=== PATIENT | female | born 1955 | race Caucasian/White ===

== ENCOUNTER → 2023-07-08 07:52 | Outpatient (REF) | payer MEDICARE, SELFPAY ==
[2023-07-08 09:14] LABS: % Basophils 0.6 % (0-2); % Eosinophils 2.9 % (0-6); % Immature Granulocytes 0.1 % (0-0.5); % Lymphocytes 29.7 % (20.5-51.1); % Monocytes 8.3 % (1.7-9.3); % Neutrophils 58.4 % (42.2-75.2); Absolute Eosinophils 0.2 10^3/uL (0-0.7); Absolute Lymphocytes 2.1 10^3/uL (1.2-3.4); Absolute Monocytes 0.6 10^3/uL (0.1-0.6); Absolute Neutrophils 4.1 10^3/uL (1.4-6.5); Hematocrit 39.1 % (37.0-47.0); Mean Corp Hgb Conc. 33.2 g/dL (33.0-37.0); Mean Corpuscular Hgb 28.2 pg (27.0-31.0); Mean Corpuscular Volume 84.8 fL (81.0-99.0); Nucleated Red Blood Cells % 0 %; Platelet Count 331 10^3/uL (130-400); Red Blood Cell Count 4.61 10^6/uL (4.20-5.40); Red Cell Dist. Width 14.2 % (11.5-14.5)
[2023-07-08 09:21] LABS: Blood Urea Nitrogen 27 mg/dl (7-17); Calcium 9.8 mg/dl (8.4-10.2); Carbon Dioxide 24 mmol/L (22-30); Chloride 108 mmol/L (98-107); Glucose 90 mg/dl (70-99); Potassium 4.4 mmol/L (3.5-5.1); Sodium 140 mmol/L (135-145); eGFR > 60.00
== END ==
LOC: RCS 07:52
PROVIDERS: ATTENDING PHYSICIAN Specialist
DX: Z01.818 Encounter for other preprocedural examination (principal)
CPT/HCPCS: 36415; 80048; 85025; 93005

== ENCOUNTER 2023-08-11 14:16 | Emergency (ER) | payer MEDICARE, SELFPAY ==
[2023-08-11 14:38] VITALS: BP 97/79
--- NOTE | 2023-08-11 14:41 | ED.PDOC.TR ---
ED Provider Triage
-
Patient seen by provider in Triage?: Seen in Triage
Pt was assessed in triage as a rapid assessment to expedite ongoing care with expectation of further assessment.
68-year-old female presenting to the emergency department today with concerns of significant shortness of breath and syncopal episode just prior to arrival. Recently had hip surgery yesterday for arthritic hip issues. Has had some right leg
swelling. Normal heart lung examination symptoms now resolved other than ongoing shortness of breath no specific chest pain. Concern potential PE considering patient's recent surgery and description of symptoms. Plan for CT scan as well as labs
and EKG.
--- NOTE | 2023-08-11 15:37 | ED.GENMED ---
History of Present Illness
General
Chief Complaint: Fainting/Passed Out
Time Seen by Provider: 08/11/23 15:28
Travel History
Have you had any contact with someone who has COVID-19?: No
Do you have any symptoms of coronavirus? Fever > 100 degrees, chills, cough, shortness of breath, sore throat, loss of taste or smell, muscle aches, or headache?: No
History of Present Illness
History of Present Illness:
68-year-old female presents to the emergency department for evaluation of a syncopal event that occurred earlier today while performing physical therapy. She is 1 day status post right total hip arthroplasty performed by Dr. Pyle. States that
her pain has been well-controlled. States during this bout of PT she felt extremely short of breath leading to the witnessed syncopal event. Currently she feels lightheaded but denies any chest pain or shortness of breath. Denies any calf pain or
leg swelling. Currently on full dose aspirin but no anticoagulants. No history of DVT or PE. Denies any recent vomiting or diarrhea.
Past History
Past History
ED Past Medical History: None
ED Past Surgical History: Gynecological and Urological
Social History
Tobacco: Non-smoker
Personal:
Living: with family
Review of Systems
Review of Systems
Allergies reviewed?: Yes
All Other Systems: ROS reviewed and negative except as documented in HPI and ROS
Phy Exam
Physical Exam
Physical Exam:
GEN: Well appearing, NAD, WDWN
HEENT: Oral mucosa moist, no scleral icterus
Cardiac: Regular rate and rhythm, no murmur
Lung: No respiratory distress, no tachypnea, lungs clear to auscultation bilaterally
MSK: No gross deformity or injuries, no lower extremity edema
Skin: Good color, no pallor or jaundice, no rashes
Neuro: AO x3, moves all extremities freely
Psych: Calm, cooperative
Course
Orders/Labs/Results
Orders:
Orders
08/11/23 14:41
Electrocardiogram (*1) Stat
Reason for Study: Other
Other Reason for Exam: chest pain
CT Chest Pe Study Urgent
Comment:
Reason For Exam: sob, syncope, surgery recent, high risk PE
EKG- Treatment ONCE
08/11/23 15:35
Complete Blood Count/With Diff Urgent
Comprehensive Metabolic Panel Urgent
Magnesium Urgent
NT-proBNP Urgent
Troponin I Urgent
08/11/23 15:36
0.9% Sodium Chloride 1000 ml [Nss] 1,000 ml IV BOLUS
Abnormal Lab Results
08/11/23
15:35
WBC 17.1 H 10^3/uL
(4.8-10.8)
RBC 3.38 L 10^6/uL
(4.20-5.40)
Hgb 9.9 L g/dL
(12.0-16.0)
Hct 29.6 L %
(37.0-47.0)
Abs Immat Gran (auto) 0.1 H 10^3/uL
(0-0.05)
Absolute Neuts (auto) 15.0 H 10^3/uL
(1.4-6.5)
Absolute Lymphs (auto) 1.0 L 10^3/uL
(1.2-3.4)
Absolute Monos (auto) 1.1 H 10^3/uL
(0.1-0.6)
Neutrophils % 87.6 H %
(42.2-75.2)
Lymphocytes % 5.6 L %
(20.5-51.1)
Carbon Dioxide 21 L mmol/L
(22-30)
BUN 24 H mg/dl
(7-17)
Glucose 148 H mg/dl
(70-99)
AST 59 H U/L
(14-36)
ALT 50 H U/L
(0-35)
08/11/23 15:35
08/11/23 15:35
Vital Signs
Initial and Last Documented VS:
Initial Vital Signs
Temp Pulse Resp BP Pulse Ox
98.1 F 75 18 97/79 99
08/11/23 14:38 08/11/23 14:38 08/11/23 14:38 08/11/23 14:38 08/11/23 14:38
Last Documented Vital Signs
Temp Pulse Resp BP Pulse Ox
97.8 F 86 16 137/84 99
08/11/23 19:58 08/11/23 19:58 08/11/23 19:58 08/11/23 19:58 08/11/23 19:58
MDM/Problems Addressed
MDM/Problems Addressed:
No evidence for PE on imaging,, patient given IV fluids due to low normal blood pressure in the emergency department, able to ambulate without difficulty. This is likely a vasovagal event triggered by pain and physical deconditioning postsurgically.
Comment
Comment:
EKG independently interpreted by me shows a sinus bradycardia at a rate of [address] changes concerning for ischemia
*Critical Care Note
Total Time (30-74mins, 75-104mins- exclusive of procedures): Not Applicable
ED Attending Note
-
Portions of this chart may have been created with voice recognition software.� Occasional wrong word or��sound alike� substitutions may have occurred due to the inherent limitations of voice recognition software.
Discharge Plan
Departure
Patient Disposition: Home (Routine Discharge)
Date of Disposition: 08/11/23
Time of Disposition: 19:47
Patient with high blood pressure during this ER visit?: No
Discharge Problem:
Syncope, vasovagal
Instructions: Syncope (Fainting) (DC)
Prescriptions:
No Action
sumatriptan succinate [Imitrex] 50 MG tablet
50 mg PO PRN PRN (Reason: migraine)
oxybutynin chloride 5 MG tablet
5 mg PO DAILY
Preservision Areds 2 Softgel
2 cap PO DAILY
atorvastatin 20 mg Tablet
20 mg PO DAILY
Hold Instructions: Resume on 01/18/23.
spironolactone 25 mg Tablet
12.5 mg PO DAILY
omeprazole 20 mg Capsule,Delayed Release(Dr/Ec)
20 mg PO DAILY
acetaminophen 325 mg Tablet
650 mg PO Q4HPRN PRN (Reason: Mild Pain / Temp > 101) Qty: 50 0RF
Referrals:
Ludwig Valdez MD [Family Provider] -
Interventions
Interventions:
*Risk Screen - Suicide Last Done: 08/11/23 14:38
*General Assessment Last Done: 08/11/23 20:10
*Neglect/Abuse Screening Last Done: 08/11/23 14:38
*ED COVID-19 Vaccine History Last Done: 08/11/23 14:38
*Nursing Disposition Last Done: 08/11/23 20:10
ED- Cardiac Assessment Last Done: 08/11/23 19:09
ED- Neurological Assessment Last Done: 08/11/23 19:09
Discharge Date and Time
Discharge Date/Time: 08/11/23 20:11
Print Language: SLOVAK
[2023-08-11 15:49] LABS: % Basophils 0.1 % (0-2); % Immature Granulocytes 0.4 % (0-0.5); % Lymphocytes 5.6 % (20.5-51.1); % Monocytes 6.3 % (1.7-9.3); % Neutrophils 87.6 % (42.2-75.2); Absolute Immature Granulocytes 0.1 10^3/uL (0-0.05); Absolute Monocytes 1.1 10^3/uL (0.1-0.6); Hematocrit 29.6 % (37.0-47.0); Hemoglobin 9.9 g/dL (12.0-16.0); Mean Corp Hgb Conc. 33.4 g/dL (33.0-37.0); Mean Corpuscular Hgb 29.3 pg (27.0-31.0); Mean Corpuscular Volume 87.6 fL (81.0-99.0); Mean Platelet Volume 9.4 fL (7.4-10.4); Nucleated Red Blood Cells % 0 %; Platelet Count 295 10^3/uL (130-400); Red Blood Cell Count 3.38 10^6/uL (4.20-5.40); Red Cell Dist. Width 14.3 % (11.5-14.5); White Blood Cell Count 17.1 10^3/uL (4.8-10.8)
[2023-08-11 15:59] LABS: ALT (SGPT) 50 U/L (0-35); AST (SGOT) 59 U/L (14-36); Albumin 3.7 g/dl (3.5-5.0); Alkaline Phosphatase 98 U/L (38-126); Blood Urea Nitrogen 24 mg/dl (7-17); Calcium 9.3 mg/dl (8.4-10.2); Carbon Dioxide 21 mmol/L (22-30); Chloride 107 mmol/L (98-107); Glucose 148 mg/dl (70-99); Sodium 137 mmol/L (135-145); Total Bilirubin 0.7 mg/dl (0.2-1.3); Total Protein 6.8 g/dl (6.3-8.2); eGFR > 60.00
[2023-08-11 16:10] LABS: Troponin I < 0.012 ng/ml
[2023-08-11 16:51] LABS: NT-proBNP 359 pg/ml
[2023-08-11] MEDS: NSS 1000 IV (18:35)
[2023-08-11 19:10] VITALS: BP 130/82
[2023-08-11 19:58] VITALS: BP 137/84
[2023-08-11 19:59] VITALS: BMI 28.8
== END 2023-08-11 20:11 | disposition home or self-care (01) ==
LOC: EMR 14:16
PROVIDERS: Physician Assistant; EMERGENCY PHYSICIAN Emergency Medicine; FAMILY PHYSICIAN Family Medicine
DX: R55 Syncope and collapse (principal); Z79.82 Long term (current) use of aspirin; Z96.641 Presence of right artificial hip joint
CPT/HCPCS: 99284; 96360; 71275; 80053; 83735; 83880; 84484; 85025; 93005; Q9967

== ENCOUNTER 2023-08-16 01:02 | Emergency (ER) | payer MEDICARE, SELFPAY ==
[2023-08-16 01:05] VITALS: BP 160/90
[2023-08-16 01:54] VITALS: BMI 28.7
--- NOTE | 2023-08-16 02:25 | ED.GENMED ---
History of Present Illness
<JODY Meraz - Last Filed: 08/16/23 02:37>
General
Chief Complaint: Bowel Problem
Source: patient
Time Seen by Provider: 08/16/23 02:11
Travel History
Have you had any contact with someone who has COVID-19?: No
Do you have any symptoms of coronavirus? Fever > 100 degrees, chills, cough, shortness of breath, sore throat, loss of taste or smell, muscle aches, or headache?: No
History of Present Illness
History of Present Illness:
68 year old female with hx of HTN, HLD, s/p R hip replacement 08/10/23 who presents with constipation with associated lower abdominal pain x 6 days. Pt had a R hip replacement last week. That night she took 1 dose of of oxycodone. Since that day she
has not had a BM. She tried Miralax on Wednesday and Wednesday with no relief. She then tried an enema and a suppository Wednesday evening with no relief. She developed severe sharp lower abdominal pain with associated nausea and vomiting this evening,
prompting her visit. She reports while she was here she had two BM that were runny. Denies fevers/chills, chest pain, SOB, flank pain, dysuria, hematuria, leg pain. She has a hx of IBS and has issues with constipation. However she has been having
regular BM prior to her hip surgery.
Past History
<JODY Meraz - Last Filed: 08/16/23 02:37>
Past History
ED Past Medical History: None
ED Past Surgical History: Gynecological and Urological
Social History
Tobacco: Non-smoker
Personal:
Living: with family
Review of Systems
<JODY Meraz - Last Filed: 08/16/23 02:37>
Review of Systems
Allergies reviewed?: Yes
All Other Systems: ROS reviewed and negative except as documented in HPI and ROS
Constitutional: Reports no symptoms
EENT: Reports no symptoms
Respiratory: Reports no symptoms
Cardiac: Reports no symptoms
ABD/GI: Reports abdominal pain, nausea, vomiting and constipated
: Reports no symptoms
Musculoskeletal: Reports joint pain
Skin: Reports no symptoms
Neurological: Reports no symptoms
Endocrine: Reports no symptoms
Hematologic/Lymphatic: Reports no symptoms
Psychiatric: Reports no symptoms
Phy Exam
<JODY Meraz - Last Filed: 08/16/23 02:37>
General Physical Exam
General Presentation: well appearing and no apparent distress
General age: appears stated age
General Skin: warm and dry
General Habitus: normal
General Mental: alert
General Hydration: appears well hydrated
Cardiovascular Exam
Cardiovascular Exam: regular rate/rhythm, no edema, no gallop, no murmur and normal peripheral pulses
Pulmonary Exam
Pulmonary Exam: lungs clear, no respiratory distress, no rales, no crackles, no rhonchi, no wheezing and no cough
Gastrointestinal Exam
Gastrointestinal Exam: normal bowel sounds, soft, no pulsatile mass, non distended and other (mild diffuse discomfort to palpation )
Skin Exam
Skin Exam: normal color and warm/dry
Psychiatric Exam
Psychiatric Exam: normal mood/affect
Course
<JODY Meraz - Last Filed: 08/16/23 02:37>
Vital Signs
Initial and Last Documented VS:
Initial Vital Signs
Temp Pulse Resp BP Pulse Ox
98 F 100 24 160/90 100
08/16/23 01:05 08/16/23 01:05 08/16/23 01:05 08/16/23 01:05 08/16/23 01:05
Last Documented Vital Signs
Temp Pulse Resp BP Pulse Ox
98.1 F 78 18 123/70 100
08/16/23 02:58 08/16/23 02:58 08/16/23 02:58 08/16/23 02:58 08/16/23 02:58
<Karla Fuentes DO - Last Filed: 08/16/23 03:44>
Vital Signs
Initial and Last Documented VS:
Initial Vital Signs
Temp Pulse Resp BP Pulse Ox
98 F 100 24 160/90 100
08/16/23 01:05 08/16/23 01:05 08/16/23 01:05 08/16/23 01:05 08/16/23 01:05
Last Documented Vital Signs
Temp Pulse Resp BP Pulse Ox
98.1 F 78 18 123/70 100
08/16/23 02:58 08/16/23 02:58 08/16/23 02:58 08/16/23 02:58 08/16/23 02:58
<JODY Meraz - Last Filed: 08/16/23 02:37>
MDM/Problems Addressed
Differential Diagnosis Includes:
constipation secondary to opioid use
MDM/Problems Addressed:
68 year old female who presents with 6 days of constipation with associated abdominal pain, nausea, and vomiting.
Chronic conditions affecting care: HTN
<JODY Meraz - Last Filed: 08/16/23 02:37>
*Critical Care Note
Total Time (30-74mins, 75-104mins- exclusive of procedures): Not Applicable
<Karla Fuentes DO - Last Filed: 08/16/23 03:44>
*Pulse Oximetry
Patient hypoxic: no
ED Attending Note
<JODY Meraz - Last Filed: 08/16/23 02:37>
-
Portions of this chart may have been created with voice recognition software.� Occasional wrong word or��sound alike� substitutions may have occurred due to the inherent limitations of voice recognition software.
<Karla Fuentes, DO - Last Filed: 08/16/23 03:44>
ED Attending Note
Patient seen and examined by attending physician: Yes
I performed the substantive portion of visit, reviewed & personally made and approve the management plan that is documented in note by myself or KOURTNEY.: Yes
I performed a history and physical exam of patient and discussed management with resident, I reviewed resident's note and agree with documented findings and plan of care.: Yes
ED Attending Note:
This is a 68-year-old woman who underwent right total hip replacement August [address] Pyle.
She was evaluated in this ED on postop day 1, August 10 after she suffered a syncopal episode during physical therapy. ED workup was unremarkable including CTA of the chest that was negative for PE. Syncopal event thought to be vasovagal in nature
related to pain.
Patient was prescribed oxycodone for which she took 1 dose August 10 but since then has been taking Tylenol for pain.
She complains of constipation with last bowel movement on August 10. She complains of lower abdominal discomfort, fullness, cramping and thus far has had no relief despite initiating once daily MiraLAX on Wednesday and Wednesday and tonight she tried a
suppository as well as an enema. She does admit to some crampy lower abdominal pain, nausea and 1-2 episodes of vomiting. She has not had a fever nor chills. No dysuria and urgency nor hematuria. No difficulty urinating.
She has been ambulating with walker without difficulty.
Since arrival to the ED patient has passed 2 soft to loose stools, nonbloody in nature and is feeling markedly improved with resolution of abdominal cramping and no further nausea.
Patient states she generally moves her bowels once a day.
GENERAL: 68-year-old woman appears her stated age, bright and alert, pleasant, appears in no acute distress. and daughter are accompanying.
EYE:. anicteric
NECK: Supple, nontender, no meningismus, no significant adenopathy.
ENT: oral mucosa is moist. Lips are mildly dry. No rhinorrhea.
CARDIAC: Regular rate and rhythm. no murmur.
LUNGS: Clear breath sounds bilaterally, no acute respiratory distress, no wheezes/rales/rhonchi
ABDOMEN: Soft, nondistended, without focal tenderness, no r/g, no cvat. normoactive BS. No palpable masses.
NEUROLOGICAL: Alert and oriented x3, no focal neuro deficits. Steady gait utilizing rolling walker.
SKIN: Warm and dry, normal color, skin intact. No rash.
MUSCULOSKELETAL: No C/C/E. peripheral pulses are full and equal b/l. Right lateral hip surgical dressing dry and intact. There is mild tenderness about the right hip but no soft tissue swelling, no ecchymosis.
PSYCH: Normal and appropriate interaction.
Patient presents with postoperative constipation. Initially no success with initiation of MiraLAX 2 days ago and initially no success with enema and suppository but since arrival to the ED has passed 2 stools and is feeling markedly improved.
Nausea has resolved, she is currently thirsty.
Abdomen is soft without appreciable tenderness. I do not suspect bowel obstruction nor acute colitis/gastroenteritis.
Will trial oral fluids now and if tolerated without return of nausea no return of abdominal pain will plan to discharge to home.
Recommend she continue daily MiraLAX until normal soft daily stools and then as needed.
Continue with physical therapy as scheduled for tomorrow, August 16.
Follow-up with orthopedics and PCP.
Return precautions discussed.
Discharge Plan
Departure
Patient Disposition: Home (Routine Discharge)
Date of Disposition: 08/16/23
Time of Disposition: 03:43
Patient with high blood pressure during this ER visit?: No
Condition: Good
Discharge Problem:
post-operative constipation
Instructions: Constipation, Adult (DC)
Prescriptions:
No Action
sumatriptan succinate [Imitrex] 50 MG tablet
50 mg PO PRN PRN (Reason: migraine)
oxybutynin chloride 5 MG tablet
5 mg PO DAILY
Preservision Areds 2 Softgel
2 cap PO DAILY
atorvastatin 20 mg Tablet
20 mg PO DAILY
Hold Instructions: Resume on 01/18/23.
spironolactone 25 mg Tablet
12.5 mg PO DAILY
omeprazole 20 mg Capsule,Delayed Release(Dr/Ec)
20 mg PO DAILY
acetaminophen 325 mg Tablet
650 mg PO Q4HPRN PRN (Reason: Mild Pain / Temp > 101) Qty: 50 0RF
aspirin 325 mg Tablet
325 mg PO DAILY
ondansetron HCl [Zofran] 4 mg Tablet
4 mg PO Q6H PRN (Reason: nausea)
meloxicam
Patient Comments:
dose unknown. pt takes daily at lunch
Referrals:
Ludwig Valdez MD [Family Provider] - Call in 1-3 days for appt
Interventions
Interventions:
*Risk Screen - Suicide Last Done: 08/16/23 01:05
*General Assessment Last Done: 08/16/23 01:44
*Neglect/Abuse Screening Last Done: 08/16/23 01:05
ED- Fall Risk Assessment Last Done: 08/16/23 01:44
*ED COVID-19 Vaccine History Last Done: 08/16/23 01:44
JR-Jnzalu-Oucajfkbil Assessment Last Done: 08/16/23 01:44
Discharge Date and Time
Print Language: NICARAGUAN
[2023-08-16 02:58] VITALS: BP 123/70
== END 2023-08-16 03:50 | disposition home or self-care (01) ==
LOC: EMR 01:02
PROVIDERS: EMERGENCY PHYSICIAN Emergency Medicine; FAMILY PHYSICIAN Family Medicine
DX: K59.09 Other constipation (principal); R10.30 Lower abdominal pain, unspecified; R11.2 Nausea with vomiting, unspecified; I10 Essential (primary) hypertension; E78.5 Hyperlipidemia, unspecified; K58.9 Irritable bowel syndrome, unspecified; Z96.641 Presence of right artificial hip joint; Z98.890 Other specified postprocedural states; Z79.82 Long term (current) use of aspirin; Z88.1 Allergy status to other antibiotic agents; Z88.3 Allergy status to other anti-infective agents; Z88.0 Allergy status to penicillin; Z88.2 Allergy status to sulfonamides
CPT/HCPCS: 99282

== ENCOUNTER 2025-01-02 06:28 | Day surgery (SDC) | payer MEDICARE, SELFPAY | END 2025-01-02 12:17 | disposition home or self-care (01) | LOC: GI 06:28 | PROVIDERS: ATTENDING PHYSICIAN Internal Medicine | DX: Z12.11 Encounter for screening for malignant neoplasm of colon (principal); D12.3 Benign neoplasm of transverse colon; D12.4 Benign neoplasm of descending colon; K63.5 Polyp of colon; K57.30 Diverticulosis of large intestine without perforation or abscess without bleeding; K64.9 Unspecified hemorrhoids; I97.88 Other intraoperative complications of the circulatory system, not elsewhere classified; I48.91 Unspecified atrial fibrillation; K62.89 Other specified diseases of anus and rectum; K22.70 Barrett's esophagus without dysplasia; K29.50 Unspecified chronic gastritis without bleeding; K21.9 Gastro-esophageal reflux disease without esophagitis; R13.10 Dysphagia, unspecified; K22.89 Other specified disease of esophagus; K31.7 Polyp of stomach and duodenum; Z86.0100 Personal history of colon polyps, unspecified | CPT/HCPCS: 45385; 43239; 88305; 88342; 93005 ==

== ENCOUNTER 2025-01-02 12:24 | Emergency (ER) | payer MEDICARE, SELFPAY ==
[2025-01-02] VITALS (9 sets, daily range): BP systolic 107–151; BP diastolic 78–109; BMI 28.0
[2025-01-02 12:59] LABS: Hematocrit 42.5 % (37.0-47.0); Hemoglobin 14.3 g/dL (12.0-16.0); Mean Corp Hgb Conc. 33.6 g/dL (33.0-37.0); Mean Corpuscular Volume 85.0 fL (81.0-99.0); Nucleated Red Blood Cells % 0 %; Platelet Count 312 10^3/uL (130-400); Red Cell Dist. Width 13.3 % (11.5-14.5)
[2025-01-02 13:16] LABS: ALT (SGPT) 34 U/L (0-35); AST (SGOT) 34 U/L (14-36); Albumin 5.0 g/dl (3.5-5.0); Alkaline Phosphatase 112 U/L (38-126); Blood Urea Nitrogen 15 mg/dl (7-17); Calcium 9.5 mg/dl (8.4-10.2); Carbon Dioxide 23 mmol/L (22-30); Chloride 106 mmol/L (98-107); Estimated Creatinine Clearance 56 ml/min; Glucose 96 mg/dl (70-99); Magnesium 2.2 mg/dl (1.6-2.3); Potassium 4.4 mmol/L (3.5-5.1); Sodium 139 mmol/L (135-145); Total Protein 8.1 g/dl (6.3-8.2); eGFR > 60.00
--- NOTE | 2025-01-02 13:18 | ED.GENMED ---
Addendum entered and electronically signed by Pablo Ricks MD 01/02/25 17:21:
After patient was admitted she did go into normal sinus rhythm. Repeat EKG per my interpretation normal sinus rhythm. I did discuss with cardiology who recommended discharge on metoprolol succinate 50 mg once a day as well as Eliquis if GI deems
appropriate. I did discuss with GI given that patient did have cold snares. They do state that is okay for Eliquis to start tomorrow. Will discharge patient at this time. Strict return precautions given especially with the fact the patient is on
a blood thinning medication and a heart rate lowering medication. All questions answered. Will give patient follow-up for chest pain hotline.
Original Note:
History of Present Illness
General
Chief Complaint: Heart Rate Problem
Time Seen by Provider: 01/02/25 13:01
History of Present Illness
History of Present Illness:
Patient is a 69-year-old female with history of hypertension, hyperlipidemia presenting to the emergency department with atrial fibrillation. Patient states that she had a colonoscopy today. At the end of her colonoscopy they noted that she was in
atrial fibrillation. Patient does state that a few days ago she felt tired weak short of breath. She states that she was in her usual state of health today. She states that at the end of the colonoscopy they noted that she was in A-fib so they
told her to come to the emergency department. She denies any lightheadedness dizziness palpitations chest pain shortness of breath leg swelling hemoptysis recent travel or malignancy. She does have prior history of thyroid problems so is not
currently on medications. No recent illnesses. She does drink 1 cup of coffee/tea a day. At this time patient has no complaints.
Past History
Past History
ED Past Medical History: None
ED Past Surgical History: Gynecological and Urological
Social History
Tobacco: Non-smoker
Personal:
Living: with family
Phy Exam
Physical Exam
Physical Exam:
GENERAL: in no acute distress
HEENT: normocephalic, extraocular movements intact, moist oral mucosa
NECK: normal inspection
RESPIRATORY: no respiratory distress, fine rales at right lower lobe
CARDIOVASCULAR: Irregularly irregular, tachycardic
ABDOMEN/: soft, non-distended, non-tender to palpation, no rebound or guarding
EXTREMITIES: non-tender, no edema/swelling
NEUROLOGIC: awake and alert, moves all extremities
SKIN: warm
Course
Orders/Labs/Results
Orders:
Orders
01/02/25 12:26
EKG [Electrocardiogram (*1)] Urgent
Reason for Study: Atrial Fibrillation
EKG- Treatment ONCE
01/02/25 12:46
Complete Blood Count/With Diff Urgent
Comprehensive Metabolic Panel Urgent
Magnesium Urgent
Comment: ADD ON
TSH Reflex To Free T4 Urgent
Comment: ADD ON
01/02/25 13:01
Add On- LAB Urgent
Tests Added?: magnesium, thyroid with reflex
01/02/25 13:16
CR Chest Portable - 1 View Urgent
Comment:
Reason For Exam: RLL rales
Reason Study Needs to be Portable: Unable to Transport
01/02/25 13:55
Diltiazem 125 mg/125 ml Nss [Cardizem] 125 mg in 125 ml IV NOW
Initial dose in mg/hr, then titrate:: 5
Titrate to keep:: Heart rate 80-100 bpm
Titrate by mg/hr:: 5 mg/hr
Frequency of titrations (minutes):: 15
Maximum dose in mg/hr:: 15
Diltiazem HCl [Cardizem] 10 mg IV NOW STA
Abnormal Lab Results
01/02/25
12:46
Total Bilirubin 1.4 H mg/dl
(0.2-1.3)
01/02/25 12:46
01/02/25 12:46
Vital Signs
Initial and Last Documented VS:
Initial Vital Signs
Temp Pulse Resp BP Pulse Ox
97.9 F 130 20 151/106 100
01/02/25 12:39 01/02/25 12:39 01/02/25 12:39 01/02/25 12:39 01/02/25 12:39
Last Documented Vital Signs
Temp Pulse Resp BP Pulse Ox
97.9 F 135 18 111/98 96
01/02/25 12:39 01/02/25 14:54 01/02/25 13:45 01/02/25 14:54 01/02/25 13:45
MDM/Problems Addressed
Differential Diagnosis Includes:
Patient is a 69-year-old female presenting to the emergency department with concerns of being in atrial fibrillation. On arrival patient's heart rate was in the 130s. During my evaluation she was anywhere in the 130s to 150s. Exam was otherwise
reassuring. EKG per my interpretation atrial fibrillation with RVR. I did have a long discussion with patient. It is known that she went into A-fib during the procedure. However it is not clear if she was in and out of A-fib the days leading up
to this. After shared decision making will not proceed with cardioversion. Will check basic blood work including thyroid. Will check a chest x-ray as she does have fine rales in the right lower lobe.
*Pulse Oximetry
SaO2: 93
Oxygen Mode of Delivery: Room air
Patient hypoxic: no
*Critical Care Note
Total Time (30-74mins, 75-104mins- exclusive of procedures): Not Applicable
Update Note
Update Note:
Chest x-ray per my interpretation with no obvious abnormality. Blood work otherwise reassuring. Patient is on diltiazem. Discussed with hospitalist who accepted patient pending thyroid studies.
ED Attending Note
-
Portions of this chart may have been created with voice recognition software.� Occasional wrong word or��sound alike� substitutions may have occurred due to the inherent limitations of voice recognition software.
Discharge Plan
Departure
Patient Disposition: Admit
Date of Disposition: 01/02/25
Time of Disposition: 15:19
Presentation/result/management discussed w/ accepting MD/DO: Hospitalist
Discharge Problem:
Atrial fibrillation
Prescriptions:
No Action
oxybutynin chloride 5 MG tablet
5 mg PO BID
spironolactone 25 mg Tablet
12.5 mg PO DAILY
atorvastatin [Lipitor] 20 mg Tablet
20 mg PO QPM
omeprazole 20 mg Tablet,Delayed Release (Dr/Ec)
20 mg PO DAILYPRN PRN (Reason: gerd)
PreserVision AREDS 2,148 mcg-113 mg-45 mg-17.4mg Tablet
1 tab PO BID
Referrals:
Ludwig Valdez MD [Family Provider, Family Practice]
Interventions
Interventions:
*Risk Screen - Suicide Last Done: 01/02/25 12:39
*General Assessment Last Done: 01/02/25 12:39
*Neglect/Abuse Screening Last Done: 01/02/25 12:39
*ED- Fall Risk Assessment Last Done: 01/02/25 13:20
ED- Cardiac Assessment Last Done: 01/02/25 13:18
ED- Pulmonary Assessment Last Done: 01/02/25 13:18
Discharge Date and Time
Print Language: GREENLANDIC
[2025-01-02] MEDS: CARDIZEM 10 MG IV (14:54)
[2025-01-02] MEDS: CARDIZEM 125 IV (14:55)
== END 2025-01-02 17:46 | disposition home or self-care (01) ==
LOC: EMR 12:24
PROVIDERS: Emergency Medicine; EMERGENCY PHYSICIAN Student in an Organized Health Care Education/Training Program; FAMILY PHYSICIAN Family Medicine
DX: I48.91 Unspecified atrial fibrillation (principal); I10 Essential (primary) hypertension; E78.5 Hyperlipidemia, unspecified; Z79.01 Long term (current) use of anticoagulants
CPT/HCPCS: 99284; 96374; 96376; 71045; 80053; 83735; 84443; 85025; 93005

== ENCOUNTER → 2025-01-06 07:05 | Outpatient (REF) | payer MEDICARE, SELFPAY ==
[2025-01-06 08:42] LABS: Glycohemoglobin (HgbA1c) 5.5 % (4.0-5.9)
[2025-01-06 08:58] LABS: HDL Cholesterol 48 mg/dl; LDL Cholesterol, Calculated 39 mg/dl; Very Low Density Lipoprotein 13 mg/dl (0-30)
== END ==
LOC: RCS 07:05
PROVIDERS: ATTENDING PHYSICIAN Internal Medicine; FAMILY PHYSICIAN Family Medicine
DX: I48.0 Paroxysmal atrial fibrillation (principal); I10 Essential (primary) hypertension; E66.3 Overweight; Z79.899 Other long term (current) drug therapy
CPT/HCPCS: 36415; 80061; 83036; 93306

== ENCOUNTER → 2025-01-09 11:58 | Outpatient (REF) | payer MEDICARE, SELFPAY | LOC: HWRCS 11:58 | PROVIDERS: ATTENDING PHYSICIAN Internal Medicine; FAMILY PHYSICIAN Family Medicine | DX: R06.02 Shortness of breath (principal); I48.0 Paroxysmal atrial fibrillation | CPT/HCPCS: 78452; 93017; A9500; J2785 ==